=== PATIENT | female | born 1975 | race Caucasian/White ===

== ENCOUNTER → 2024-07-28 | Outpatient (CLI) | payer BC, OTHER, SELFPAY ==
[2024-07-28 10:10] LABS: Collection Type, Urine Clean Catch
[2024-07-28 10:36] LABS: Basophils % (Auto) 1 % (0-2.5); Eosinophils # (Auto) 0.1 Thou/mm3 (0.0-0.5); Eosinophils % (Auto) 1 % (0-10); Hematocrit 35.4 % (36.0-46.0); Hemoglobin 12.4 g/dL (12.0-16.0); Immature Granulocytes % (Auto) 0 % (0-0); Immature Granulocytes Auto 0.01 Thou/mm3 (0.00-0.00); Lymphocytes # (Auto) 1.7 Thou/mm3 (1.0-4.8); Lymphocytes % (Auto) 30 % (10-50); Mean Corpuscular Hemoglobin 30.6 pg (25.0-35.0); Mean Corpuscular Volume 87 fL (80-100); Monocytes # (Auto) 0.5 Thou/mm3 (0.0-0.8); Monocytes % (Auto) 8 % (0-12); Neutrophils # (Auto) 3.5 Thou/mm3 (1.8-7.7); Neutrophils % (Auto) 60 % (37-80); Nucleated Red Blood Cell % 0 /100 WBC (0); Platelet Count 230 Thou/mm3 (140-440); RDW Standard Deviation 41.1 fL (36.4-46.3); Red Blood Count 4.05 Miln/mm3 (4.00-5.20); White Blood Count 5.8 Thou/mm3 (3.6-11.0)
[2024-07-28 10:43] LABS: Glucose Estimated Average 100 mg/dL (80-131); Hemoglobin A1C 5.1 % Hgb (4.8-6.0)
[2024-07-28 11:01] LABS: Alanine Aminotransferase 18 U/L (10-49); Albumin, Serum 4.3 gm/dL (3.5-5.0); Alkaline Phosphatase 56 U/L (46-116); Anion Gap 10 (7-16); Aspartate Amino Transferase 22 U/L (0-34); BUN/Creatinine Ratio 11 Ratio (12-20); Bilirubin,Total 0.5 mg/dL (0.3-1.2); Blood Urea Nitrogen 10 mg/dL (9-23); Calcium 9.1 mg/dL (8.3-10.6); Calcium (Corrected) 9.1 mg/dL (8.5-10.1); Carbon Dioxide 28.4 mMol/L (20.0-31.0); Cardiac Risk Estimate 3.5 RATIO (3.7-5.6); Chloride 104 mMol/L (98-107); Cholesterol 171 mg/dL (132-200); Creatinine (Component) 0.9 mg/dL (0.6-1.3); Globulin 2.2 gm/dL (2.3-3.5); Glucose 94 mg/dL (74-106); HDL Cholesterol 49 mg/dL (40-60); LDL Cholesterol,Calculated 110 mg/dL (0-130); Osmolality,Calculated 282 (275-295); Potassium 4.4 mMol/L (3.4-5.1); Sodium 142 mMol/L (136-145); Thyroid Stimulating Hormone 1.54 uIU/mL (0.55-4.78); Total Protein 6.5 gm/dL (5.7-8.2); Triglycerides 58 mg/dL (30-150); eGFR > 60 See Note
[2024-07-28 11:03] LABS: Bacteria,Urine Rare; Bilirubin,Urine Negative (Negative); Blood,Urine Negative (Negative); Color,Urine Yellow (Lt Yel-Yel); Culture Indicated,Urine Contaminated; Glucose, Urine Negative (Negative); Ketones,Urine Negative (Negative); Leukocyte Esterase,Urine Positive (Negative); Nitrite,Urine Negative (Negative); PH,Urine 6.5 (5.0-7.0); Protein,Urine Trace (Neg - Trace); RBC,Urine 38 /hpf (0-3); Squamous Epithelial Cell,Urine 17 /hpf (0-5); WBC,Urine 95 /hpf (0-5)
[2024-07-28 11:11] LABS: Clarity,Urine Hazy (Clear/Hazy)
== END | disposition home or self-care (01) ==
LOC: COPL 09:41
PROVIDERS: PCP Family Medicine; Referring Provider Registered Nurse; Visit Provider Registered Nurse
DX: Z00.00 Encounter for general adult medical examination without abnormal findings (principal)
CPT/HCPCS: 36415; 80053; 80061; 81001; 82306; 83036; 84443; 85025

== ENCOUNTER 2024-09-25 14:25 | Day surgery (SDC) | payer BC, OTHER, SELFPAY ==
[2024-09-22 14:44] LABS: INR 1.1 (0.9-1.3); Partial Thromboplastin Time 26.9 Seconds (22.0-36.0); Prothrombin Time 11.5 Seconds (9.0-12.2)
[2024-09-22 14:48] LABS: Alanine Aminotransferase 24 U/L (10-49); Albumin, Serum 4.5 gm/dL (3.5-5.0); Albumin/Globulin Ratio 2.3 (1.2-2.2); Alkaline Phosphatase 46 U/L (46-116); Anion Gap 10 (7-16); Aspartate Amino Transferase 25 U/L (0-34); BUN/Creatinine Ratio 11 Ratio (12-20); Bilirubin,Total 0.5 mg/dL (0.3-1.2); Blood Urea Nitrogen 11 mg/dL (9-23); Calcium 9.9 mg/dL (8.3-10.6); Calcium (Corrected) 9.9 mg/dL (8.5-10.1); Carbon Dioxide 28.1 mMol/L (20.0-31.0); Chloride 104 mMol/L (98-107); Creatinine (Component) 1.0 mg/dL (0.6-1.3); Globulin 2.0 gm/dL (2.3-3.5); Glucose 90 mg/dL (74-106); Osmolality,Calculated 282 (275-295); Potassium 4.3 mMol/L (3.4-5.1); Sodium 142 mMol/L (136-145); Total Protein 6.5 gm/dL (5.7-8.2); eGFR > 60 See Note
[2024-09-22 16:10] LABS: HCG,Qualitative Serum Positive
--- NOTE | 2024-09-22 17:17 | EKG_ITS ---
[facility] Test Date: 2024-09-22 Pat Name: SHAYNE RIDDLE Department: Room: - Gender: Female [employer] Manager: JUAN : 1975 Requested By: Sathish Moses Order Number: [id number] Reading MD: Sathish Moses Measurements Intervals [place] Rate: 85 P: 64 UT: 151 QRS: 69 QRSD: 101 T: 74 QT: 368 QTc: 440 Interpretive Statements SINUS RHYTHM No previous ECG available for comparison /store/[id number]/[id number]
[2024-09-25 15:49] VITALS: BP 114/84; PULSE 81; RESP 18; TEMP 36.7; O2SAT 98; BMI 24.7
--- NOTE | 2024-09-25 16:47 | SUR.PREOP ---
@1000 INFORMED OF POSITIVE TEST. STATES IT IS NOT ACCURATE AND IT IS OKAY TO PROCEED WITH PROCEDURE. PATIENT HAS THE MURINA IUD. PATIENT HAS NOT HAD A REGULAR PERIOD IN OVER A YEAR.
[2024-09-25 16:54] VITALS: BP 127/84; PULSE 80; RESP 17; O2SAT 100
[2024-09-25] MEDS: RINGERS LACTATED 1000 ML 1,000 ML 20 ML IV (16:54)
[2024-09-25 17:26] VITALS: BP 112/81; PULSE 78; RESP 19; TEMP 36.8; O2SAT 99
[2024-09-25 17:36] VITALS: BP 117/80; PULSE 84; RESP 14; O2SAT 100
[2024-09-25 17:46] VITALS: BP 121/84; PULSE 83; RESP 17; O2SAT 100
[2024-09-25 17:56] VITALS: BP 116/87; PULSE 76; RESP 16; TEMP 36.8; O2SAT 100
--- NOTE | 2024-10-02 11:51 | PD.ANESPROG ---
Documentation for date of: 10/02/24 POST ANESTHESIA NOTE: Patient had MAC with IV Propofol and Fentanyl for colonoscopy on 09/25/24. I called her multiple times post op for follow up on her number and her 's number listed since then, and finally today just now she answered her phone. Pre-op, her routine test came back positive with a note from lab stating faintly positive and suggest recollection in 1-2 weeks. Another anesthesiologist was actually assigned to endo cases that day while this patient was there being prepped for her procedure, and the patient reported to me today that her test was discussed with her at the time of her pre-op (before I arrived there and took over her case) and she reported she was told another patient who was 88 year old also had positive test and she reported that she has been in menopause for last 4 years. I again notified her of test and about the note and she was thankful and not concerned and had no further questions for me. Gabriel Ruby MD Anesthesia Progress Note Progress Note Most recent Vital Signs: Last Vital Signs Temp 98.2 F 09/25/24 17:56 Pulse 76 09/25/24 17:56 Resp 16 09/25/24 17:56 BP 116/87 H 09/25/24 17:56 Pulse Ox 100 09/25/24 17:56
== END 2024-09-25 18:05 | disposition home or self-care (01) ==
PROVIDERS: PCP Registered Nurse; Referring Provider Specialist; Visit Provider Specialist
PROC: 0DBE8ZX Excision of Large Intestine, Via Natural or Artificial Opening Endoscopic, Diagnostic (ICD-10-PCS; CPT 45380; principal; 2024-09-25 10:45)
DX: D12.3 Benign neoplasm of transverse colon (principal); K64.9 Unspecified hemorrhoids; K57.30 Diverticulosis of large intestine without perforation or abscess without bleeding; Z01.810 Encounter for preprocedural cardiovascular examination; Z98.84 Bariatric surgery status
CPT/HCPCS: 45385; 45380; 36415; 80053; 84703; 85610; 85730; 93005; J7120

== ENCOUNTER → 2024-10-04 | Outpatient (CLI) | payer BC, OTHER, SELFPAY ==
--- NOTE | 2024-10-04 09:00 | XR_ITS ---
Examination: Screening digital mammography, bilateral Computer aided detection 3-D breast Tomosynthesis, bilateral Date and time of exam: October 04, 2024 0927 hours Compared to mammograms dating to March 10, 2023 Indication: Screening Technique: Nonmagnified MLO, CC views of the breasts to been obtained, reconstructed from 3-D Tomosynthesis images. R2 computer aided detection program utilized for evaluation of suspicious masses and/or abnormal calcifications. 3-D Tomosynthesis images obtained. Findings: Scattered areas of fibroglandular density Benign calcifications. No interval suspicious masses Impression: BI-RADS category II: Benign Findings. Recommend 1 year follow-up mammogram.
== END | disposition home or self-care (01) ==
LOC: CDIM 09:10
PROVIDERS: Referring Provider Registered Nurse; Visit Provider Registered Nurse
DX: Z12.31 Encounter for screening mammogram for malignant neoplasm of breast (principal); R92.323 Mammographic fibroglandular density, bilateral breasts; R92.1 Mammographic calcification found on diagnostic imaging of breast
CPT/HCPCS: 77063; 77067

== ENCOUNTER 2024-11-27 08:30 | Day surgery (SDC) | payer BC, OTHER, SELFPAY ==
--- NOTE | 2024-11-24 12:47 | EKG_ITS ---
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
[2024-11-24 13:22] LABS: INR 1.1 (0.9-1.3); Partial Thromboplastin Time 25.1 Seconds (22.0-36.0); Prothrombin Time 11.4 Seconds (9.0-12.2)
[2024-11-24 13:23] VITALS: BMI 26.9
[2024-11-24 13:26] LABS: Alanine Aminotransferase 19 U/L (10-49); Albumin, Serum 4.6 gm/dL (3.5-5.0); Albumin/Globulin Ratio 2.4 (1.2-2.2); Alkaline Phosphatase 49 U/L (46-116); Anion Gap 7 (7-16); Aspartate Amino Transferase 22 U/L (0-34); BUN/Creatinine Ratio 11 Ratio (12-20); Bilirubin,Total 0.5 mg/dL (0.3-1.2); Blood Urea Nitrogen 9 mg/dL (9-23); Calcium 10.3 mg/dL (8.3-10.6); Calcium (Corrected) 10.3 mg/dL (8.5-10.1); Carbon Dioxide 29.7 mMol/L (20.0-31.0); Chloride 106 mMol/L (98-107); Creatinine (Component) 0.8 mg/dL (0.6-1.3); Globulin 1.9 gm/dL (2.3-3.5); Glucose 86 mg/dL (74-106); Osmolality,Calculated 282 (275-295); Potassium 4.3 mMol/L (3.4-5.1); Sodium 143 mMol/L (136-145); Total Protein 6.5 gm/dL (5.7-8.2); eGFR > 60 See Note
[2024-11-24 13:33] LABS: HCG Qualitative,Urine Negative
[2024-11-27 08:53] VITALS: BP 114/82; PULSE 86; RESP 18; TEMP 37.1; O2SAT 100; BMI 24.0
[2024-11-27] MEDS: RINGERS LACTATED 1000 ML 1,000 ML 20 ML IV (10:30)
[2024-11-27 10:52] VITALS: BP 119/58; PULSE 79; RESP 23; O2SAT 100
[2024-11-27 11:02] VITALS: BP 104/80; PULSE 85; RESP 11; O2SAT 100
[2024-11-27 11:12] VITALS: BP 119/85; PULSE 74; RESP 11; O2SAT 100
[2024-11-27 11:22] VITALS: BP 111/78; PULSE 74; RESP 12; O2SAT 100
== END 2024-11-27 11:34 | disposition home or self-care (01) ==
PROVIDERS: Anesthesiology; PCP Registered Nurse; Referring Provider Specialist; Visit Provider Specialist
PROC: (CPT 43239; principal; 2024-11-27 09:30)
DX: K22.2 Esophageal obstruction (principal); Z86.0101 Personal history of adenomatous and serrated colon polyps; K57.30 Diverticulosis of large intestine without perforation or abscess without bleeding
CPT/HCPCS: 43248; 43239; 36415; 80053; 81025; 85610; 85730; 93005; A4649; C1769; J7120

== ENCOUNTER → 2024-11-29 | Outpatient (CLI) | payer BC, OTHER, SELFPAY ==
[2024-11-29 11:45] LABS: Follicle Stimulating Hormone 120.63 mIU/mL (See Note)
[2024-12-04 07:17] LABS: Estrogen, Total, Serum* 429 pg/mL; Luteinizing Hormone* 58.9 mIU/mL
== END | disposition home or self-care (01) ==
LOC: COPL 10:43
PROVIDERS: PCP Registered Nurse; Referring Provider Specialist; Visit Provider Specialist
DX: N95.1 Menopausal and female climacteric states (principal)
CPT/HCPCS: 36415; 82672; 83001; 83002

== ENCOUNTER → 2025-02-21 | Outpatient (CLI) | payer BC, OTHER, SELFPAY ==
--- NOTE | 2025-02-21 09:32 | XR_ITS ---
EXAMINATION: PA lateral chest 2 views TECHNIQUE: Upright PA lateral chest 2 views Date and time: February 21, 2025, 0946 hours INDICATIONS: Preop FINDINGS: Normal heart size Lungs are clear. Intact osseous structures IMPRESSION: No active disease
[2025-02-21 10:53] LABS: Basophils # (Auto) 0.0 Thou/mm3 (0.0-0.2); Basophils % (Auto) 1 % (0-2.5); Eosinophils # (Auto) 0.0 Thou/mm3 (0.0-0.5); Eosinophils % (Auto) 1 % (0-10); Hematocrit 39.1 % (36.0-46.0); Hemoglobin 13.3 g/dL (12.0-16.0); Immature Granulocytes Auto 0.02 Thou/mm3 (0.00-0.00); Lymphocytes # (Auto) 1.8 Thou/mm3 (1.0-4.8); Lymphocytes % (Auto) 32 % (10-50); Mean Corpuscular HGB Conc 34.0 g/dl (31.0-37.0); Mean Corpuscular Hemoglobin 30.9 pg (25.0-35.0); Mean Corpuscular Volume 91 fL (80-100); Monocytes # (Auto) 0.4 Thou/mm3 (0.0-0.8); Monocytes % (Auto) 6 % (0-12); Neutrophils # (Auto) 3.4 Thou/mm3 (1.8-7.7); Neutrophils % (Auto) 60 % (37-80); Nucleated Red Blood Cell # 0.00 Thou/mm3 (0.00-0.00); Nucleated Red Blood Cell % 0 /100 WBC (0); Platelet Count 216 Thou/mm3 (140-440); RDW Standard Deviation 41.3 fL (36.4-46.3); Red Blood Count 4.31 Miln/mm3 (4.00-5.20); White Blood Count 5.6 Thou/mm3 (3.6-11.0)
[2025-02-21 11:00] LABS: INR 1.0 (0.9-1.3); Partial Thromboplastin Time 24.6 Seconds (22.0-36.0); Prothrombin Time 10.9 Seconds (9.0-12.2)
[2025-02-21 11:01] LABS: HCG,Qualitative Serum Positive
[2025-02-21 11:05] LABS: Glucose Estimated Average 103 mg/dL (80-131); Hemoglobin A1C 5.2 % Hgb (4.8-6.0)
[2025-02-21 11:07] LABS: Alanine Aminotransferase 24 U/L (10-49); Albumin, Serum 4.8 gm/dL (3.5-5.0); Albumin/Globulin Ratio 2.1 (1.2-2.2); Alkaline Phosphatase 53 U/L (46-116); Anion Gap 11 (7-16); Aspartate Amino Transferase 24 U/L (0-34); BUN/Creatinine Ratio 12 Ratio (12-20); Bilirubin,Total 0.6 mg/dL (0.3-1.2); Blood Urea Nitrogen 11 mg/dL (9-23); Calcium 9.8 mg/dL (8.3-10.6); Calcium (Corrected) 9.8 mg/dL (8.5-10.1); Carbon Dioxide 29.5 mMol/L (20.0-31.0); Chloride 106 mMol/L (98-107); Creatinine (Component) 0.9 mg/dL (0.6-1.3); Globulin 2.3 gm/dL (2.3-3.5); Glucose 90 mg/dL (74-106); Osmolality,Calculated 289 (275-295); Potassium 3.9 mMol/L (3.4-5.1); Sodium 146 mMol/L (136-145); Total Protein 7.1 gm/dL (5.7-8.2); eGFR > 60 See Note
[2025-02-21 11:46] LABS: Hepatitis B Surface Antigen Non Reactive (Non React); Hepatitis C Antibody Non Reactive (Non React)
[2025-02-21 14:49] LABS: HIV (1&2) Antibody Rapid Non-Reactive
== END | disposition home or self-care (01) ==
LOC: CDIM 09:28 → COPL 09:54
PROVIDERS: PCP Registered Nurse; Referring Provider Registered Nurse; Visit Provider Radiology Diagnostic Radiology
DX: Z01.818 Encounter for other preprocedural examination (principal); R79.89 Other specified abnormal findings of blood chemistry
CPT/HCPCS: 36415; 71046; 80053; 83036; 84703; 85025; 85610; 85730; 86703; 86803; 87340

== ENCOUNTER → 2025-02-22 | Outpatient (CLI) | payer BC, OTHER, SELFPAY ==
[2025-02-22 13:24] LABS: HCG,Qualitative Serum Positive
[2025-02-22 13:26] LABS: Beta HCG,Quantitative 12 mIU/mL (<5.0)
== END | disposition home or self-care (01) ==
LOC: COPL 12:16
PROVIDERS: PCP Family Medicine; Referring Provider Registered Nurse; Visit Provider Registered Nurse
DX: R89.1 Abnormal level of hormones in specimens from other organs, systems and tissues (principal)
CPT/HCPCS: 36415; 84702; 84703